=== PATIENT | female | born 1950 | race Caucasian/White ===

== ENCOUNTER 2018-09-15 09:18 | Emergency (ER) | payer MEDICARE ==
[2018-09-15] MEDS ORDERED: ASPIRIN 300 MG SUPP, RECTAL PR ONE (09:41)
[2018-09-15] MEDS ORDERED: TENECTEPLASE INJ 50 MG KIT IV ONE (09:43)
[2018-09-15] MEDS ORDERED: NORMAL SALINE 1000 ML 1,000 ML IV ONE (09:44)
[2018-09-15] MEDS ORDERED: ETOMIDATE INJ/PF 20 MG/10 ML SDV IV ONE (09:45)
[2018-09-15] MEDS ORDERED: SUCCINYLCHOLINE CHLORIDE INJ 200 MG/10 ML VIAL IV ONE (09:45)
[2018-09-15] MEDS ORDERED: DEXTROSE 5%-WATER 500 ML with AMIODARONE HCL 900 MG IV PRN ×2 (09:45)
[2018-09-15] MEDS ORDERED: DEXTROSE 5%-WATER 250 ML with NOREPINEPHRINE BITARTRATE 4 MG IV PRN ×2 (09:53)
[2018-09-15] MEDS ORDERED: HEPARIN SOD (PORCINE) 1,000 UNIT/ML 1 ML VIAL IV PRN (09:55)
[2018-09-15 10:14] LABS: HEMATOCRIT 40.8 % (36.0-47.0); HEMOGLOBIN 13.1 g/dL (12.0-15.5); MEAN CORPUSCULAR HEMOGLOBIN 30.6 pg (27.0-33.4); MEAN CORPUSCULAR VOLUME 96 fl (80-97); PLATELET COUNT 243 10^3/uL (150-450); RED BLOOD COUNT 4.27 10^6/uL (3.72-5.28); RED CELL DISTRIBUTION WIDTH 12.5 % (11.5-14.0); WHITE BLOOD COUNT 20.9 10^3/uL (4.0-10.5)
[2018-09-15 10:26] LABS: ANION GAP 19 (5-19); BLOOD UREA NITROGEN 17 mg/dL (7-20); CALCIUM 9.8 mg/dL (8.4-10.2); CARBON DIOXIDE 17 mmol/L (22-30); CHLORIDE 105 mmol/L (98-107); CREATINE KINASE 458 U/L (30-135); GLUCOSE 223 mg/dL (75-110); POTASSIUM 4.2 mmol/L (3.6-5.0)
[2018-09-15 10:38] LABS: CREATINE KINASE MB 26.6 ng/mL (<4.55)
[2018-09-15 10:43] LABS: TROPONIN I 3.7 ng/mL
[2018-09-15] MEDS ORDERED: AMIODARONE HCL INJ 150 MG/3 ML VIAL IV ONE (10:45)
--- NOTE | 2018-09-15 11:05 | RADIOLOGY REPORT (SQ) ---
EXAM DESCRIPTION: CHEST SINGLE VIEW COMPLETED DATE/TIME: 09/15/2018 10:21 am REASON FOR STUDY: Chest Pain r/o PA COMPARISON: Two-view chest 02/02/2015 EXAM PARAMETERS: NUMBER OF VIEWS: One view. TECHNIQUE: Single frontal radiographic view of the chest acquired. RADIATION DOSE: NA LIMITATIONS: None. FINDINGS: LUNGS AND PLEURA: Diffuse bilateral alveolar and interstitial infiltrates from pulmonary e hernan. No pleural effusion. No pneumothorax. MEDIASTINUM AND HILAR STRUCTURES: No masses. Contour normal. HEART AND VASCULAR STRUCTURES: Stable cardiomegaly BONES: No acute findings. HARDWARE: Endotracheal tube tip 4 cm above the jona. Nasogastric tube tip and side port in the sto mach. Defibrillator pads over the chest OTHER: No other significant finding. IMPRESSION: Pulmonary edema. Tubes and lines in good position TECHNICAL DOCUMENTATION: JOB ID: [id number] [employer]- All Rights Reserved Reading location - IP/workstation name: [email or web address]
[2018-09-15 11:16] VITALS: BP 68/55
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
[2018-09-15] MEDS ORDERED: NOREPINEPHRINE BITARTRATE INJ/PF 4 MG/4 ML SDV IV ONE (15:41)
--- NOTE | 2018-09-15 19:19 | EKG REPORT ---
SEVERITY:- ABNORMAL ECG - ACCELERATED JUNCTIONAL ESCAPE RHYTHM INFERIOR INJURY, PROBABLE EARLY ACUTE INFARCT BORDERLINE PROLONGED QT INTERVAL : Confirmed by: Olinda Brink MD 15-Sep-2018 19:18:37
--- NOTE | 2018-09-15 19:20 | EKG REPORT ---
SEVERITY:- ABNORMAL ECG - SINUS TACHYCARDIA VENTRICULAR PREMATURE COMPLEX NONSPECIFIC INTRAVENTRICULAR CONDUCTION DELAY INFERIOR INJURY, EARLY ACUTE INFARCT : Confirmed by: Olinda Brink MD 15-Sep-2018 19:19:00
== END 2018-09-15 10:17 | disposition short-term general hospital (02) ==
LOC: ER 09:18
DX: I21.3 ST elevation (STEMI) myocardial infarction of unspecified site (principal); I46.9 Cardiac arrest, cause unspecified; R07.9 Chest pain, unspecified
CPT/HCPCS: 93005; 99291; 51702; 96375; 96365; 96368; 36415; 82553; 82550; 85027; 80048; 84484; 71045; 94660; 93010; 31500; J3101; A9270; J1644; J3490 ×2; J0330; J7060 ×2; J7030; J0282